=== PATIENT | female | born 1955 | race Caucasian/White ===

== ENCOUNTER → 2021-03-26 | Outpatient (CLI) | payer MEDICARE, OTHER ==
[~2021-03-26] MED LIST: ATIVAN 0.50.5 MG/TAB PO; CRANBERRY500 M3 PO; LEVOXYL0.088 MG PO; LEXAPRO 10MG10 MG PO; MOTRIN 600600 MG/TAB PO; NATURE'S BLE1000 MCG PO; NORCO 325 MG-51 TAB PO; PRENATAL FORMU1 EAC3 PO; PRINIVIL10 MG PO; VITAMIN D250 MCG PO
== END ==
LOC: MC.RAD 12:50
DX: C50.912 Malignant neoplasm of unspecified site of left female breast (principal)
CPT/HCPCS: A9520; C1769

== ENCOUNTER 2021-03-27 09:08 | Day surgery (SDC) | payer MEDICARE, OTHER ==
[~2021-03-27] VITALS: Ht 160 cm; Wt 86.8 kg
[2021-03-27 10:12] VITALS: BP 193/91; PULSE 70; TEMP 97.4
[2021-03-27] MEDS ORDERED: ATIVAN 0.50.5 MG/TAB PO (10:14)
[2021-03-27] MEDS ORDERED: LEXAPRO 10MG10 MG PO (10:14)
[2021-03-27] MEDS ORDERED: LEVOXYL0.088 MG PO (10:14)
[2021-03-27] MEDS ORDERED: VITAMIN D250 MCG PO (10:15)
[2021-03-27] MEDS ORDERED: PRINIVIL10 MG PO (10:15)
[2021-03-27] MEDS ORDERED: NATURE'S BLE1000 MCG PO (10:16)
[2021-03-27] MEDS ORDERED: PRENATAL FORMU1 EAC3 PO (10:16)
[2021-03-27] MEDS ORDERED: CRANBERRY500 M3 PO (10:16)
[2021-03-27] MEDS ORDERED: NORCO 325 MG-51 TAB PO (15:10)
[2021-03-27] MEDS ORDERED: MOTRIN 600600 MG/TAB PO (15:11)
[2021-03-27 15:50] VITALS: BP 150/63; PULSE 80; TEMP 97.6
--- NOTE | 2021-03-27 15:50 | NUR ---
The patient arrived back to [facility] from the recovery room at this time. The patient appears alert and oriented and denies any nausea but reports minimal pain at this time. The patient agrees to try some marley crackers so she can take an oral pain medication. Incisions are covered with surgical glue and without redness or edema. Call light is within reach. Will continue to monitor the patient.
[2021-03-27 16:05] VITALS: BP 154/92; PULSE 83
--- NOTE | 2021-03-27 16:05 | NUR ---
The patient appears to be tolerating the crackers and water well. The patient denies any further needs at this time. Vital signs appear stable. Will continue to monitor the patient.
[2021-03-27 16:20] VITALS: BP 155/70; PULSE 83
--- NOTE | 2021-03-27 16:20 | NUR ---
The patient voices a desire to get up to the bathroom and be discharged home. The patient is to be given a PRN dose of [place] 1 tab to help with pain relief on the drive home.
--- NOTE | 2021-03-27 16:35 | NUR ---
The patient was successful in the bathroom and her IV was removed so she can get dressed. The patient was given a PRN dose of [employer] one tab at this time. Discharge instrucitons were reviewed with the patient at this time and she verbalized understanding and has no questions for the nurse at this time.
--- NOTE | 2021-03-27 16:45 | NUR ---
The patient was escorted out via wheelchair to a private vehicle by GOMEZ Welch. The patient's belongings and discharge paperwork were sent with her. The patient's signficant other is present to drive her home.
== END 2021-03-27 16:45 | disposition home or self-care (01) ==
LOC: SDCO 09:08
DX: C50.912 Malignant neoplasm of unspecified site of left female breast (principal); C77.3 Secondary and unspecified malignant neoplasm of axilla and upper limb lymph nodes; I10 Essential (primary) hypertension; E03.9 Hypothyroidism, unspecified; F41.9 Anxiety disorder, unspecified; Z79.890 Hormone replacement therapy; Z79.899 Other long term (current) drug therapy; Z98.51 Tubal ligation status
CPT/HCPCS: A4648; J0690; J1100; J2250; J2405; J2704; J3010; J7120

== ENCOUNTER 2021-04-14 11:14 | Day surgery (SDC) | payer MEDICARE, OTHER ==
[2021-04-14] VITALS (9 sets, daily range): BP systolic 114–187; BP diastolic 47–89; PULSE 68–90; TEMP 97.6–98.4
[~2021-04-14] VITALS: Ht 160 cm; Wt 87.0 kg
--- NOTE | 2021-04-14 18:05 | NUR ---
BEDSIDE REPORT FROM COMMUNITY FACILITATOR. PT IN STABLE CONDITION. VITAL SIGNS STABLE. FULLYL ALERT AND ORIENTED. DENIES FEELING GROGGY, DENIES SEVERE PAIN. REQUESTS TO AMBULATE TO AND FROM RESTROOM TO VOID. AMBULATES WITH STEADY GAIT NOTED AT THIS TIME. VOID MISSED THE MEASURING HAT, UNABLE TO MEASURE. PT ASSISTED BACK INTO BED IN STABLE CONDITION. 3 LEAH DRAINS WITH MINIMAL BRIGHT RED DRAINAGE UPON ARRIVAL. JOHNSON COMPRESSION NOTED TO CHEST. ORIENTED TO ROOM, CALL LIGHT AND PHONE. DENIES FURTHER QUESTION OR CONCERNS AT THIS TIME. CALL LIGHT WITHIN REACH UPON EXITING ROOM.
--- NOTE | 2021-04-14 21:00 | NUR ---
LEAH DRAIN OUTPUT: #1- 35 #2- 10 #3 20
[2021-04-14 21:51] LABS: HEMATOCRIT 38.7 % (37.0-47.0); HEMOGLOBIN 12.7 g/dl (12.5-16.0); MEAN CELL VOLUME 92 fl (80.0-100.0); MEAN CORPUSCULAR HEMOGLOBIN 30 pg (27-31); MEAN CORPUSCULAR HGB CONC 33 g/dl (33.0-37.0); MEAN PLATELET VOLUME 10.7 fl (7.4-10.4); PLATELET COUNT 258 K/mm3 (130-400); REDCELL DISTRIBUTION WIDTH-CV 12.4 % (11.5-14.5)
[2021-04-14 22:06] LABS: ALBUMIN 3.7 gm/dL (3.4-4.8); BILIRUBIN,TOTAL 1.2 mg/dL (0.2-1.2); CALCIUM 8.3 mg/dL (8.4-10.2); CREATININE, serum 1.27 mg/dL (0.57-1.11); POTASSIUM 4.2 mmol/L (3.5-4.5); TOTAL PROTEIN 6.7 gm/dL (6.2-8.1)
[2021-04-14 22:31] LABS: BAND 11 % (0-10); LYMPHOCYTE 5 % (20.0-51.0); NEUTROPHILS 81 % (42.0-75.2)
[2021-04-14 22:32] LABS: PLATELET ESTIMATE NORMAL (NORMAL)
[2021-04-15 00:30] VITALS: BP 112/50; PULSE 72; TEMP 98.8
--- NOTE | 2021-04-15 00:30 | NUR ---
Pt's oxygen saturations 98% on room air
[2021-04-15 04:30] VITALS: BP 105/50; PULSE 55; TEMP 98.5
--- NOTE | 2021-04-15 04:30 | NUR ---
LEAH DRAIN OUTPUT: #1- 10mls #2- 10mls #3- 10mls
[2021-04-15 06:55] LABS: BASO % 0.2 % (0.0-2.0); GRAN # 11.2 K/mm3 (1.4-6.5); GRAN % 83.9 % (42.2-75.2); HEMOGLOBIN 11.9 g/dl (12.5-16.0); LYMPH % 7.6 % (20.0-51.0); MEAN CELL VOLUME 91 fl (80.0-100.0); MEAN CORPUSCULAR HEMOGLOBIN 31 pg (27-31); MEAN CORPUSCULAR HGB CONC 34 g/dl (33.0-37.0); MEAN PLATELET VOLUME 10.8 fl (7.4-10.4); MONO # 1.1 K/mm3 (0.1-0.6); MONO % 8.1 % (1.7-9.3); PLATELET COUNT 271 K/mm3 (130-400); REDCELL DISTRIBUTION WIDTH-CV 12.5 % (11.5-14.5)
[2021-04-15 07:09] LABS: ALBUMIN 3.4 gm/dL (3.4-4.8); CALCIUM 8.3 mg/dL (8.4-10.2); CREATININE, serum 1.22 mg/dL (0.57-1.11); PHOSPHOROUS 3.3 mg/dL (2.3-4.7); POTASSIUM 4.5 mmol/L (3.5-4.5)
[2021-04-15 07:15] VITALS: BP 106/50; PULSE 59; TEMP 97.8
[2021-04-15 07:20] LABS: HEMATOCRIT 35.4 % (37.0-47.0)
[2021-04-15] MEDS ORDERED: NORCO 325 MG-51 TAB PO (08:33)
[2021-04-15] MEDS ORDERED: ULTRAM 50MG TAB50 MG PO (09:07)
--- NOTE | 2021-04-15 09:24 | NUR ---
Initial visit; Patient thanked Vice President Of Business [employer] for looking in on her, offering God's blessings and to keep her in Vice President [employer] Business [employer]'s prayers.
--- NOTE | 2021-04-15 11:23 | NUR ---
IVF BOLUS COMPLETED. DRAINS EMPTIED: 1-20ML, 2-25ML, 3-30ML.
--- NOTE | 2021-04-15 11:43 | NUR ---
DISCHARGE TEACHING COMPLETED. PATIENT EDUCATED ON FOLLOW UP APPOINTMENT WITH DR. CAPELLAN ON TUESDAY AT 11:30AM. PRESCRIPTIONS AND CONTINUED MEDICATIONS REVIEWED. PATIENT TAUGHT HOW TO EMPTY DRAINS AND PROVIDED PAMPLET TO DOCUMENT OUTPUT. PACKET OF INFORMATION ON PORT INSTALLED PROVIDED TO PATIENT. QUESTIONS INVITED AND ANSWERED.
== END 2021-04-15 12:45 | disposition home or self-care (01) ==
LOC: SDCO 11:14 → OB 18:05 → SDCO 04-15 12:45
PROVIDERS: Surgery
DX: C50.912 Malignant neoplasm of unspecified site of left female breast (principal); C96.9 Malignant neoplasm of lymphoid, hematopoietic and related tissue, unspecified; N64.89 Other specified disorders of breast; I10 Essential (primary) hypertension; E03.9 Hypothyroidism, unspecified; F41.9 Anxiety disorder, unspecified; F32.9 Major depressive disorder, single episode, unspecified; F32.A Depression, unspecified; Z79.899 Other long term (current) drug therapy; Z79.890 Hormone replacement therapy; Z85.828 Personal history of other malignant neoplasm of skin; Z80.0 Family history of malignant neoplasm of digestive organs
CPT/HCPCS: OP; A4648; C1788; J0690; J1100; J1644; J2250; J2405; J2704; J3010; J7030; J7120